=== PATIENT | female | born 1980 | race Caucasian/White ===

== ENCOUNTER 2020-05-27 13:41 | Emergency (ER) | payer OTHER ==
[~2020-05-27] VITALS: Ht 167.6 cm; Wt 119.7 kg
[2020-05-27] MEDS ORDERED: VRAYLAR1.5 MG PO (15:21)
[2020-05-27] MEDS ORDERED: CLONAZEPAM2 MG GT (15:21)
[2020-05-27] MEDS ORDERED: VENTOLIN HFA18 GM INH (15:26)
[2020-05-27] MEDS ORDERED: BENADRYL25 MG PO (15:27)
== END 2020-05-27 18:14 | disposition home or self-care (01) ==
LOC: ED 13:41
DX: K59.00 Constipation, unspecified (principal); F17.200 Nicotine dependence, unspecified, uncomplicated; Z79.899 Other long term (current) drug therapy
CPT/HCPCS: 80053; 81001; 85025; 96374; 99284-25; J1885

== ENCOUNTER 2021-10-08 20:30 | Emergency (ER) | payer OTHER ==
[~2021-10-08] VITALS: Ht 167.6 cm; Wt 119.8 kg
[~2021-10-08 20:30] MED LIST: BENADRYL25 MG PO; CLONAZEPAM2 MG GT; VENTOLIN HFA18 GM INH; VRAYLAR1.5 MG PO
--- OUTSIDE RECORDS SUMMARY | 2021-10-08 20:32 | XMS ---
PreManage Notification: MOIRA DANIELS Security [employer] Events No recent Security Events currently on file CRITERIA MET - [facility] Family Medicine 12/12/2016-Current PHONE: [phone] Meme has no Care Guidelines for this patient. [facility] VISIT COUNT (12 MO.) [address] [facility] TOTAL 1 NOTE: Visits indicate total known visits. ED/UCC VISIT TRACKING (12 MO.) 10/08/2021 20:30 [facility] TYPE: Emergency COMPLAINT: - KNECK PAIN INPATIENT VISIT TRACKING (12 MO.) No inpatient visits to display in this time frame [email or web address]
[2021-10-08] MEDS ORDERED: HYDROXYZINE HCL25 MG PO (23:09)
[2021-10-08] MEDS ORDERED: LAMOTRIGINE100 MG PO (23:09)
[2021-10-08] MEDS ORDERED: CYCLOBENZAPRINE5 MG PO (23:09)
[2021-10-09] MEDS ORDERED: CYCLOBENZAPRINE10 MG PO (00:14)
[2021-10-09] MEDS ORDERED: MELOXICAM7.5 MG PO (00:14)
== END 2021-10-09 00:40 | disposition home or self-care (01) ==
LOC: ED 20:30
DX: M62.838 Other muscle spasm (principal); F17.200 Nicotine dependence, unspecified, uncomplicated; Z79.899 Other long term (current) drug therapy
CPT/HCPCS: 72040; 96372; 99283-25; J1885; J3360

== ENCOUNTER 2022-10-13 01:30 | Emergency (ER) | payer OTHER ==
[~2022-10-13] VITALS: Ht 167.6 cm; Wt 132.5 kg
[~2022-10-13 01:30] MED LIST changes: +CYCLOBENZAPRINE10 MG PO; +CYCLOBENZAPRINE5 MG PO; +HYDROXYZINE HCL25 MG PO; +LAMOTRIGINE100 MG PO; +MELOXICAM7.5 MG PO
[2022-10-13] MEDS ORDERED: OMEPRAZOLE20 MG PO (01:53)
[2022-10-13] MEDS ORDERED: HYDROCODON-ACE1 EA10 PO (02:54)
[2022-10-13] MEDS ORDERED: CEPHALEXIN500 M1 PO (02:54)
[2022-10-13 03:17] VITALS: BP 157/99
== END 2022-10-13 03:18 | disposition home or self-care (01) ==
LOC: ED 01:30
DX: R10.9 Unspecified abdominal pain (principal); N39.0 Urinary tract infection, site not specified; E66.01 Morbid (severe) obesity due to excess calories; F17.200 Nicotine dependence, unspecified, uncomplicated; Z79.899 Other long term (current) drug therapy
CPT/HCPCS: 36415; 74177; 80053; 81001; 83690; 85025; 99284-25; A9270; Q9967